=== PATIENT | male | born 1945 ===

== ENCOUNTER 2017-10-01 16:25 | Emergency (ER) | payer MEDICARE ==
[2017-10-01 16:32] VITALS: BP 133/70; PULSE 64; RESP 18; TEMP 98; O2SAT 99
[2017-10-01] MEDS ORDERED: Lidocaine 1% (10 ml) Inj INFIL STA (17:01)
[2017-10-01] MEDS ORDERED: ceFAZolin 1 GM in Sodium Chloride 0.9% 100 ML IVPB ONE (17:03)
[2017-10-01] MEDS ORDERED: Lidocaine 1% Inj (20ml) ONE (17:33)
--- NOTE | 2017-10-01 18:24 | RAD ---
PROCEDURE: Right Hand Radiographs. HISTORY: Laceration, thenar eminence COMPARISON: None. FINDINGS: BONES: No acute fracture. Evidence of old 5th metacarpal fracture. JOINTS: Osteoarthritic changes distal and to lesser extent proximal interphalangeal joint distribution. SOFT TISSUES: Soft tissue laceration adjacent to the 1st metacarpal. This extends to the cortex. Air within the soft tissues, reflective of the acuity of this injury. No visulaized radiopaque/visualized foreign body. OTHER FINDINGS: None. IMPRESSION: Soft tissue injury/laceration 1st metacarpal without foreign body or osseous involvement.
--- NOTE | 2017-10-01 19:09 | ED PDOC ---
HPI: Skin/Bite Injury Time Seen by Provider: 10/01/17 16:43 Chief Complaint (Nursing): Abnormal Skin Integrity Chief Complaint (Provider): Right hand laceration, cut at work [employer] History Per: Patient Onset/Duration Of Symptoms: Mins Current Symptoms Are (Timing): Still Present Location Of Injury: Right: Hand Quality Of Symptoms: Painful Severity: Moderate Pain Scale Rating Of: 5 Additional Complaint(s): Unknown tetanus. Past Medical History Reviewed: Historical Data, Nursing Documentation, Vital Signs Vital Signs: Last Vital Signs Temp 98 F 10/01/17 16:28 Pulse 64 10/01/17 16:28 Resp 18 10/01/17 16:28 BP 133/70 10/01/17 16:28 Pulse Ox 99 10/01/17 16:28 - Medical History PMH: HTN - Surgical History Surgical History: No Surg Hx - Family History Family History: States: No Known Family Hx - Living Arrangements Living Arrangements: With Family - Social History Current smoker - smoking cessation education provided: No - Home Medications Home Medications: Ambulatory Orders Medication Instructions Recorded Amoxicillin/Clavulanate [Augmentin 1 tab PO BID #20 tab 10/01/17 875 MG-125 MG] traMADol [Ultram] 50 mg PO Q6H PRN #15 tab 10/01/17 - Allergies Allergies/Adverse Reactions: Allergies Allergy/AdvReac Type Severity Reaction Status Date / Time No Known Allergies Allergy Verified 10/01/17 16:28 Review of Systems ROS Statement: Except As Marked, All Systems Reviewed And Found Negative Constitutional: Negative for: Fever, Chills Skin: Positive for: Other (Right hand laceration) Physical Exam - Reviewed Nursing Documentation Reviewed: Yes Vital Signs Reviewed: Yes - Physical Exam Appears: Positive for: Well, Non-toxic, No Acute Distress Head Exam: Positive for: ATRAUMATIC, NORMAL INSPECTION, NORMOCEPHALIC Skin: Positive for: Warm. Negative for: Normal Color ((+) 7 cm laceration of the right thenar eminence, transecting muscle ) Eye Exam: Positive for: Normal appearance ENT: Positive for: Normal ENT Inspection Neck: Positive for: Normal, Painless ROM Respiratory: Negative for: Accessory Muscle Use, Respiratory Distress Back: Positive for: Normal Inspection Extremity: Positive for: Normal ROM (Good adduction and opposition), Capillary Refill (Normal). Negative for: Swelling Neurologic/Psych: Positive for: Alert, Oriented - ECG O2 Sat by Pulse Oximetry: 99 Medical Decision Making Medical Decision Making: Discussed with Dr. Taylor. Instructed to suture, splint and have patient follow- up . Thumb spica applied. Disposition - Clinical Impression Clinical Impression: Hand laceration, Tetanus toxoid vaccination administered at current visit Counseled Patient/Family Regarding: Diagnosis, Need For Followup, Rx Given - Disposition Referrals: Renae Taylor MD [Staff Provider] - Disposition: Routine/Home Disposition Time: 19:11 Condition: GOOD Additional Instructions: Please call Dr. Taylor for appointment. She wants to see you 10/03/17. Take antibiotics twice a day. Prescriptions: Amoxicillin/Clavulanate [Augmentin 875 MG-125 MG] 1 tab PO BID #20 tab traMADol [Ultram] 50 mg PO Q6H PRN #15 tab PRN Reason: Pain Instructions: Care For Your Stitches (ED) Print Language: IRAQI Laceration - Laceration Repair Hand - Right Wound Length (In cm): 7cm Description Of Wound: Linear Anesthesia: Lidocaine 1% Wound Examination: Irrigated With Saline, No FB With Wound Exploration Wound Closure: Suture Suture Technique And Material Used: Nylon (#8, interrupted ), Vicryl (#7, 5.0) Wound Complexity: Intermediate
== END 2017-10-01 19:50 | disposition home or self-care (01) ==
LOC: H.ER 16:25
DX: S61.411A Laceration without foreign body of right hand, initial encounter (principal); W26.8XXA Contact with other sharp object(s), not elsewhere classified, initial encounter; Y99.0 Civilian activity done for income or pay; I10 Essential (primary) hypertension
CPT/HCPCS: 12001; 73130; 90471; 90715; 96365; 99282; J0690